=== PATIENT | female | born 1950 | race Caucasian/White ===

== ENCOUNTER → 2017-01-13 | Outpatient (CLI) | payer MEDICARE, OTHER | LOC: RAD 10:50 | PROVIDERS: ATTEND Family Medicine | DX: Z12.31 Encounter for screening mammogram for malignant neoplasm of breast (principal) ==

== ENCOUNTER → 2017-03-24 | Outpatient (CLI) | payer MEDICARE, OTHER ==
[~2017-03-24] MED LIST: BISO1TAB38 PO; DULO30CA PO; SPIR50TA29 PO; VALS1TAB5 PO; ZOLP10TA PO; methylPREDNISolone 80 MG/ML (DEPO MEDROL) VIAL IM ONE
--- NOTE | 2017-03-25 08:42 | PAIN MANAGEMENT ---
Date of note: 03/24/2017 Procedure: Bilateral transforaminal epidural steroid injection under fluoroscopy Fluoroscopic exposure 3 minutes 10 seconds This is a 66-year-old patient of Dr. Cochran in [place], [place]. The patient presents with spinal stenosis. I have been asked to provide transforaminal epidural steroid injection on the left side at L2-3 and on the right side and L5-S1. Informed consent was achieved. The patient was placed in prone position in the treatment room with fluoroscopy. The oblique view revealed the posterolateral aspect of the target pedicle. The area was prepped and draped using aseptic technique. The skin and overlying tissues were localized using 3 ml of 1% PF lidocaine using a 25-gauge 1.5-inch needle. A 25 gauge spinal needle was advanced to the inferior border of the lamina. Lateral confirmation of the needle tip was dorsal to the foramen. The needle was walked off inferolateral to the foramen. Aspiration for CSF and heme were negative. Both sides were injected with Isovue 240, 0.25 ml with proper placement confirmed and no vascular uptake. AP view revealed spread of contrast medially. Both sides were injected with Depo-Medrol 40 mg with a total of 0.5 mL mg in the transforaminal space. The patient was taken to the ASC and released after approximately 15 minutes with proper arm strength and vitals. I have asked the patient to call me in 3 days. I will follow their progress.
== END ==
LOC: PMC 15:54
DX: M48.06 Spinal stenosis, lumbar region (principal)
CPT/HCPCS: 64483; J1040